=== PATIENT | male | born 1970 ===

== ENCOUNTER 2018-06-13 05:37 | Day surgery (SDC) | payer OTHER ==
[~2018-06-13] VITALS: Ht 170.2 cm; Wt 113.4 kg
[2018-06-13] VITALS (10 sets, daily range): BP systolic 113–132; BP diastolic 66–86
[~2018-06-13 05:37] MED LIST: NKM
[2018-06-13] MEDS ORDERED: celeBREX 200mg Cap **SURGERY PATIENTS ONLY ORAL ONE (06:00)
[2018-06-13] MEDS ORDERED: ceFAZolin 1gm in D5W 55ml IVP ONE (06:00)
[2018-06-13] MEDS ORDERED: oxyCONTIN 20mg tab ORAL ONE (06:00)
[2018-06-13] MEDS ORDERED: Bacitracin 50000 Units Vial ONE (06:32)
[2018-06-13] MEDS ORDERED: Bupivacaine 0.5% Inj 30 ml vial INJ ONE (06:32)
--- NOTE | 2018-06-13 07:02 | Operative Note - PDOC ---
Operative Note Operative Note Pre-op Diagnosis: left shoulder loose screw Procedure: see op report Post-op Diagnosis: same as pre-op plus Operative Findings: consistent w/pre-op dx studies Anesthesia: local Specimen: none Complications: none Condition: stable Estimated Blood Loss: none Implant(s) used?: No Romario Veliz MD Jun 13, 2018 07:02
--- NOTE | 2018-06-13 07:02 | Pre-Procedure Note/Attestation ---
Pre-Procedure Note/Attestation Complete Prior to Procedure Planned Procedure: right Procedure Narrative: shoulder removal hardware Indications for Procedure Pre-Operative Diagnosis: left shoulder loose screw Attestation I attest that I discussed the nature of the procedure; its benefits; risks and complications; and alternatives (and the risks and benefits of such alternatives ), prior to the procedure, with the patient (or the patient's legal direct sales representative). I attest that, if there was a reasonable possibility of needing a blood transfusion, the patient (or the patient's legal direct sales representative) was given the [facility] standardized written summary, pursuant to the Zhen Andreas Blood Safety Act ([place] Health and Safety Code # 1645, as amended). I attest that I re-evaluated the patient just prior to the surgery and that there has been no change in the patient's H&P, except as documented below: Romario Veliz MD Jun 13, 2018 07:02
[2018-06-13] MEDS ORDERED: fentaNYL 100 mcg/2 mL IV ONE (07:06)
[2018-06-13] MEDS ORDERED: D5 1/2NS 1,000 ML IV SCH (07:15)
[2018-06-13] MEDS ORDERED: Tylenol #3 tab (300mg/30mg) ORAL PRN (07:15)
[2018-06-13] MEDS ORDERED: HYDROmorphone 1mg/ml Carpuject SUBQ PRN (07:15)
[2018-06-13] MEDS ORDERED: Norco 5mg/325mg tab ORAL PRN (07:15)
[2018-06-13] MEDS ORDERED: Metoclopramide 10mg/2ml Inj ONE (07:40)
[2018-06-13] MEDS ORDERED: Ketorolac 30mg Inj ONE (07:40)
[2018-06-13] MEDS ORDERED: Lidocaine 1% MPF 10mg/ml 5ml ONE (07:40)
[2018-06-13] MEDS ORDERED: Propofol 200mg/20ml IV ONE (07:40)
[2018-06-13] MEDS ORDERED: fentaNYL 100 mcg/2 mL IV PRN (07:45)
--- NOTE | 2018-06-13 07:47 | Immediate Post-Op Evaluation ---
Immediate Post-Op Evalulation Immediate Post-Op Evalulation Procedure: removal of arm screw right Date of Evaluation: Jun 13, 2018 Time of Evaluation: 07:37 IV Fluids: 500 Blood Pressure Systolic: 115 Blood Pressure Diastolic: 81 Pulse Rate: 85 Respiratory Rate: 14 O2 Sat by Pulse Oximetry: 100 Temperature (Fahrenheit): 97.5 Nausea: No Vomiting: No Complications none Patient Status: awake, reacts, patent Hydration Status: adequate Drug: ancef Given Within 1 Hr of Incision: Yes Time Given: 07:00 Jina Murrell CRNA Jun 13, 2018 07:47
--- NOTE | 2018-06-13 07:48 | Anethesia Preoperative Eval ---
Anesthesia Pre-op PMH/ROS General Date of Evaluation: Jun 13, 2018 Time of Evaluation: 07:00 Anesthesiologist: martha ASA Score: ASA 3 Mallampati Score Class I : Soft palate, uvula, fauces, pillars visible Class II: Soft palate, uvula, fauces visible Class III: Soft palate, base of uvula visible Class IV: Only hard plate visible Mallampati Classification: Class III Surgeon: yris Diagnosis: arm screw Surgical Procedure: removal of arm screw Anesthesia History: none Family History: no anesthesia problems Allergies: Coded Allergies: No Known Allergies (Unverified , 06/12/18) Medications: see eMAR Past Medical History Cardiovascular: Denies: HTN, CAD, [place], valve dz, arrhythmia, other Pulmonary: Denies: asthma, COPD, ELIAS, other Gastrointestinal/Genitourinary: Denies: GERD, CRI, ESRD, other Neurologic/Psychiatric: Denies: dementia, CVA, depression/anxiety, TIA, other Endocrine: Denies: DM, hypothyroidism, steroids, other HEENT: Denies: cataract (L), cataract (R), glaucoma, [place] (L[place] (R), other Hematology/Immune: Denies: anemia, DVT, bleeding disorder, other Musculoskeletal/Integumentary: Denies: OA, RA, DJD, DDD, edema, other Other: obesity PSxH Narrative: shoulder Anesthesia Pre-op Phys. Exam Physician Exam Last Vital Signs Date Time Temp Pulse Resp B/P (MAP) Pulse Ox O2 Delivery O2 Flow Rate FiO2 06/13/18 06:38 Room Air 06/13/18 06:16 97.9 85 18 132/79 (96) 97 97.9 Constitutional: NAD Neurologic: CN 2-12 intact Cardiovascular: RRR Respiratory: CTA Gastrointestinal: S/NT/ND Airway Exam Mallampati Classification 3 Mallampati Score: Class III MO: full ROM: full Teeth: missing Dentures: no upper, no lower Anesthesia Pre-op A/P Studies Pre-op Studies: EKG - sr Risk Assessment & Plan Plan: general lma Pre-Antibiotics Drug: ancef Given Within 1 Hr of Incision: Yes Time Given: 07:00 Jina Murrell CRNA Jun 13, 2018 07:48
[2018-06-13] MEDS ORDERED: EPINEPHrine 1mg/1ml Amp ONE (07:58)
--- NOTE | 2018-06-13 08:15 | Operative Note - Dictated ---
DATE OF OPERATION: 06/13/2018 PREOPERATIVE DIAGNOSES: 1. Loose right shoulder hardware status post open reduction and internal fixation right proximal humerus fracture. 2. Painful hypertrophic scar right shoulder measuring 3 centimeters. POSTOPERATIVE DIAGNOSIS: Loose right shoulder hardware status post open reduction and internal fixation right proximal humerus fracture. PROCEDURE: 1. Removal of right shoulder hardware one loose screw. 2. Complex wound closure 3 centimeters right shoulder. SURGEON: Romario Veliz M.D. ANESTHESIA: MAC. INDICATION FOR PROCEDURE: The patient is a pleasant gentleman, who unfortunately underwent open reduction and internal fixation of bilateral shoulders. He had a loose screw that was causing soft tissue pain. He elected to undergo right shoulder removal of the hardware. Risks, limitations, expectations, and complications of the procedure were discussed in detail. All questions addressed. DESCRIPTION OF PROCEDURE: After informed consent was obtained, the patient was brought to the operative room. The patient was placed under general anesthesia. The right shoulder was prepped and draped in a sterile manner. Time-out was performed. Ancef was administered. The previous skin incision was coaxed out. The skin was then incised. The previous scar tissue was removed to nice healthy skin edges dissection down. Subcutaneous planes were created. The deltoid was split. The screw was identified and removed. Wound was copiously irrigated. The deltoid was approximated with #1 Vicryl suture. Skin was approximated with 2-0 Vicryl sutures. The incision was then closed using 3-0 Monocryl sutures. Romario Veliz M.D. DR: EMILIA JOB#: [id number] CC:
--- NOTE | 2018-06-13 08:43 | 48 Hour Post Anesthesia Eval ---
Post Anesthesia Evaluation Procedure: removal of arm screw right Date of Evaluation: Jun 13, 2018 Time of Evaluation: 08:43 Blood Pressure Systolic: 122 0: 73 Pulse Rate: 83 Respiratory Rate: 14 O2 Sat by Pulse Oximetry: 99 Airway: patent Nausea: No Vomiting: No Hydration Status: adequate Cardiopulmonary Status: stable Mental Status/LOC: patient returned to baseline Follow-up Care/Observations: na Post-Anesthesia Complications: none Follow-up care needed: N/A Jina Murrell CRNA Jun 13, 2018 08:43
[2018-06-13] MEDS ORDERED: NS Irrig 1000ml ONE (09:00)
[2018-06-13] MEDS ORDERED: LR 1000ml ONE (09:00)
[2018-06-13] MEDS ORDERED: Sterile Water Irrig 1000ml IRRIG ONE (09:00)
== END 2018-06-13 08:50 | disposition home or self-care (01) ==
LOC: SUR 05:37
DX: T84.418A Breakdown (mechanical) of other internal orthopedic devices, implants and grafts, initial encounter (principal); Y83.8 Other surgical procedures as the cause of abnormal reaction of the patient, or of later complication, without mention of misadventure at the time of the procedure; Y92.89 Other specified places as the place of occurrence of the external cause; L90.5 Scar conditions and fibrosis of skin
CPT/HCPCS: 20680; J0171; J0690; J1885; J2405; J2704; J2765; J3010; J3490; 94003; 94150